=== PATIENT | female | born 1985 | race Caucasian/White ===

== ENCOUNTER 2024-08-09 00:31 | Emergency (ER) | payer SELFPAY ==
[2024-08-09 00:43] VITALS: BP 132/84
--- NOTE | 2024-08-09 03:54 | ED.GENMED ---
History of Present Illness
General
Chief Complaint: Suicidal Ideation
Source: patient
Time Seen by Provider: 08/09/24 02:56
Nursing documentation reviewed up to this point in time: agreed with
History of Present Illness
History of Present Illness:
39-year-old female presents to the emergency department with suicidal ideation. Patient states that she works as an ICU nurse in [place] and is in town visiting a friend. She states that 'she keeps losing everyone' and reports that she
'cannot go on any longer'. She states that she has had suicidal ideation in the past. She does not admit to acting out on it. She wishes to sign herself into a [facility] hospital.
Review of Systems
Review of Systems
Allergies reviewed?: Yes
All Other Systems: ROS reviewed and negative except as documented in HPI and ROS
Psychiatric: Reports depression, anxiety and suicidal
Phy Exam
General Physical Exam
General Presentation: well appearing
General age: appears stated age
General Skin: warm and dry
General Habitus: normal
General Mental: alert
General Hydration: appears well hydrated
ENT Exam
ENT Exam: EOMI, pharynx normal, neck supple and normocephalic
Eye Exam
Eye Exam: PERRL, cornea clear and conjunctiva normal
Cardiovascular Exam
Cardiovascular Exam: regular rate/rhythm and no edema
Pulmonary Exam
Pulmonary Exam: lungs clear, no respiratory distress, no rales, no crackles, no rhonchi, no stridor, no wheezing and no cough
Gastrointestinal Exam
Gastrointestinal Exam: normal bowel sounds, non tender, soft, no organomegaly, no pulsatile mass and non distended
Neurological Exam
Neurological Exam: alert, oriented x3, no motor deficits and speech normal
Musculoskeletal Exam
Musculoskeletal Exam: full ROM and no edema
Skin Exam
Skin Exam: normal color, warm/dry, no rash and no petechia
Psychiatric Exam
Psychiatric Exam: depressed and suicidal
Course
Orders/Labs/Results
Orders:
Orders
08/09/24 00:47
1:1 Observation - Suicide/ Violent Behavior As Directed
Crisis Consult Urgent
Reason for Consult: SUICIDAL
Vital Signs
Initial and Last Documented VS:
Initial Vital Signs
Temp Pulse Resp BP Pulse Ox
97.8 F 78 18 132/84 100
08/09/24 00:43 08/09/24 00:43 08/09/24 00:43 08/09/24 00:43 08/09/24 00:43
Last Documented Vital Signs
Temp Pulse Resp BP Pulse Ox
97.8 F 78 16 132/84 100
08/09/24 00:43 08/09/24 00:43 08/09/24 01:42 08/09/24 00:43 08/09/24 00:43
*Critical Care Note
Total Time (30-74mins, 75-104mins- exclusive of procedures): Not Applicable
ED Attending Note
-
Portions of this chart may have been created with voice recognition software.� Occasional wrong word or��sound alike� substitutions may have occurred due to the inherent limitations of voice recognition software.
Discharge Plan
Departure
Patient Disposition: Psych Facility
Date of Disposition: 08/09/24
Time of Disposition: 03:58
Patient Status:: 201
Condition: Fair
Discharge Problem:
Suicidal ideation
Instructions: BLOOD PRESSURE, Suicide Prevention
Interventions
Interventions:
*Risk Screen - Suicide Last Done: 08/09/24 00:43
*Neglect/Abuse Screening Last Done: 08/09/24 00:43
ED-Psychological Assessment Last Done: 08/09/24 01:00
Discharge Date and Time
Print Language: DJIBOUTIAN
[2024-08-09 05:53] VITALS: BP 103/64
[2024-08-09 06:11] LABS: Amphetamines Negative (Negative); Barbiturates Negative (Negative); Benzodiazepines Negative (Negative); Buprenorphine Negative (Negative); Cocaine Negative (Negative); Marijuana Positive (Negative); Methadone Negative (Negative); Methamphetamines Negative (Negative); Opiates Negative (Negative); Phencyclidine Negative (Negative); Tricyclic Antidepressants Negative (Negative)
[2024-08-09 06:46] LABS: HCG, Urine Qualitative Screen Negative
== END 2024-08-09 10:58 ==
LOC: EMR 00:31
PROVIDERS: EMERGENCY PHYSICIAN Student in an Organized Health Care Education/Training Program
DX: R45.851 Suicidal ideations (principal); F32.A Depression, unspecified; F41.9 Anxiety disorder, unspecified
CPT/HCPCS: 99285; 80306; 81025